=== PATIENT | female | born 1955 | race Caucasian/White ===

== ENCOUNTER → 2017-01-17 | Outpatient (CLI) | payer BC ==
--- NOTE | 2017-01-18 09:55 | MM ---
Reason for exam: screening (asymptomatic). Last mammogram was performed 1 year ago. History: Patient is postmenopausal and is nulliparous. Family history of breast cancer in maternal aunt at age 50. Took estrogen for 10 years beginning at age 26. Took progesterone for 12 years beginning at age 36. Physical Findings: A clinical breast exam by your physician is recommended on an annual basis and results should be correlated with mammographic findings. MG Screening Mammo w CAD Bilateral CC and MLO view(s) were taken. Prior study comparison: January 20, 2016, bilateral MG screening mammo w CAD. January 23, 2015, bilateral MG screening mammo w CAD. There are scattered fibroglandular densities. No significant changes when compared with prior studies. ASSESSMENT: Benign, BI-RAD 2 RECOMMENDATION: Routine screening mammogram of both breasts in 1 year.
== END | disposition home or self-care (01) ==
LOC: RADMAMWWP 10:56
PROVIDERS: ATTEND Family Medicine
DX: Z12.31 Encounter for screening mammogram for malignant neoplasm of breast (principal)

== ENCOUNTER → 2018-01-26 | Outpatient (CLI) | payer BC ==
--- NOTE | 2018-01-29 08:24 | MM ---
Reason for exam: screening (asymptomatic). Last mammogram was performed 1 year ago. History: Patient is postmenopausal and is nulliparous. Family history of breast cancer in maternal aunt at age 50. Took estrogen for 10 years beginning at age 26. Took progesterone for 12 years beginning at age 36. Physical Findings: A clinical breast exam by your physician is recommended on an annual basis and results should be correlated with mammographic findings. MG Screening Mammo w CAD Bilateral CC and MLO view(s) were taken. Prior study comparison: January 17, 2017, bilateral MG screening mammo w CAD. January 20, 2016, bilateral MG screening mammo w CAD. There is no discrete abnormality. ASSESSMENT: Negative, BI-RAD 1 RECOMMENDATION: Routine screening mammogram of both breasts in 1 year.
== END | disposition home or self-care (01) ==
LOC: RADMAMWWP 11:03
PROVIDERS: ATTEND Family Medicine
DX: Z12.31 Encounter for screening mammogram for malignant neoplasm of breast (principal)
CPT/HCPCS: 77067

== ENCOUNTER → 2019-01-28 | Outpatient (CLI) | payer MEDICARE, BC ==
--- NOTE | 2019-01-30 09:14 | MM ---
Reason for exam: screening (asymptomatic). Last mammogram was performed 1 year ago. History: Patient is postmenopausal and is nulliparous. Family history of breast cancer in maternal aunt at age 50. Took estrogen for 10 years beginning at age 26. Took progesterone for 12 years beginning at age 36. Physical Findings: A clinical breast exam by your physician is recommended on an annual basis and results should be correlated with mammographic findings. MG 3D Screening Mammo W/Cad Bilateral CC and MLO view(s) were taken. Prior study comparison: January 26, 2018, bilateral MG screening mammo w CAD. January 17, 2017, bilateral MG screening mammo w CAD. There are scattered fibroglandular densities. No significant changes when compared with prior studies. ASSESSMENT: Negative, BI-RAD 1 RECOMMENDATION: Routine screening mammogram of both breasts in 1 year.
== END ==
LOC: RADMAMWWP 10:56
PROVIDERS: ATTEND Family Medicine
DX: Z12.31 Encounter for screening mammogram for malignant neoplasm of breast (principal)
CPT/HCPCS: 77063; 77067

== ENCOUNTER → 2020-01-31 | Outpatient (CLI) | payer MEDICARE ==
--- NOTE | 2020-02-03 08:47 | MM ---
Reason for exam: screening (asymptomatic). Last mammogram was performed 1 year ago. History: Patient is postmenopausal and is nulliparous. Family history of breast cancer in maternal aunt at age 50. Took hormonal contraceptives for 3 years. Took estrogen for 10 years beginning at age 26. Took progesterone for 12 years beginning at age 36. Physical Findings: A clinical breast exam by your physician is recommended on an annual basis and results should be correlated with mammographic findings. MG 3D Screening Mammo W/Cad Bilateral CC and MLO view(s) were taken. Prior study comparison: January 28, 2019, bilateral MG 3d screening mammo w/cad. January 26, 2018, bilateral MG screening mammo w CAD. The breast tissue is heterogeneously dense. This may lower the sensitivity of mammography. There is an oval focal asymmetry on the left seen at middle depth centrally on CC and MLO. There is a round 6mm mass of the right upper outer quadrnant at posterior depth 10-11cm from nipple. ASSESSMENT: Incomplete: need additional imaging evaluation, BI-RAD 0 RECOMMENDATION: Special view mammogram of both breasts. If lesion persists on supplemental views, image directed ultrasound is recommended. [facility] will attempt to contact patient to return for supplemental views and ultrasound if indicated.
== END | disposition home or self-care (01) ==
LOC: RADMAMWWP 10:59
PROVIDERS: ATTEND Family Medicine
DX: Z12.31 Encounter for screening mammogram for malignant neoplasm of breast (principal)
CPT/HCPCS: 77063; 77067

== ENCOUNTER → 2020-02-14 | Outpatient (CLI) | payer MEDICARE ==
--- NOTE | 2020-02-14 11:02 | MM ---
Reason for exam: additional evaluation requested from abnormal screening. Last mammogram was performed less than 1 month ago. History: Patient is postmenopausal and is nulliparous. Family history of breast cancer in maternal aunt at age 50. Took hormonal contraceptives for 3 years. Took estrogen for 10 years beginning at age 26. Took progesterone for 12 years beginning at age 36. Physical Findings: Nurse did not find any significant physical abnormalities on exam. MG 3D Work Up W/Cad [facility] Bilateral spot compression CC, spot compression MLO, and LM view(s) were taken. Prior study comparison: January 31, 2020, bilateral MG 3d screening mammo w/cad. January 28, 2019, bilateral MG 3d screening mammo w/cad. The breast tissue is heterogeneously dense. This may lower the sensitivity of mammography. Benign appearing bilateral calcifications. No suspicious abnormality. No significant new findings when compared with previous films. These results were verbally communicated with the patient and result sheet given to the patient on 02/14/20. ASSESSMENT: Benign, BI-RAD 2 RECOMMENDATION: Return to routine screening mammogram schedule for both breasts.
== END | disposition home or self-care (01) ==
LOC: RADMAMWWP 09:47
PROVIDERS: ATTEND Family Medicine
DX: R92.8 Other abnormal and inconclusive findings on diagnostic imaging of breast (principal)
CPT/HCPCS: 77066; G0279; 77062

== ENCOUNTER → 2021-02-24 | Outpatient (CLI) | payer MEDICARE ==
--- NOTE | 2021-02-26 11:01 | MM ---
Reason for exam: screening (asymptomatic). Last mammogram was performed 1 year ago. History: Patient is postmenopausal and is nulliparous. Family history of breast cancer in maternal aunt at age 50. Took hormonal contraceptives for 3 years. Took estrogen for 10 years beginning at age 26. Took progesterone for 12 years beginning at age 36. Physical Findings: A clinical breast exam by your physician is recommended on an annual basis and results should be correlated with mammographic findings. MG 3D Screening Mammo W/Cad Bilateral CC and MLO view(s) were taken. Prior study comparison: February 14, 2020, bilateral MG 3d work up w/cad [facility]. January 31, 2020, bilateral MG 3d screening mammo w/cad. The breast tissue is heterogeneously dense. This may lower the sensitivity of mammography. No significant changes when compared with prior studies. ASSESSMENT: Benign, BI-RAD 2 RECOMMENDATION: Routine screening mammogram of both breasts in 1 year.
== END | disposition home or self-care (01) ==
LOC: RADMAMWWP 14:38
PROVIDERS: ATTEND Family Medicine
DX: Z12.31 Encounter for screening mammogram for malignant neoplasm of breast (principal); Z78.0 Asymptomatic menopausal state; Z80.3 Family history of malignant neoplasm of breast
CPT/HCPCS: 77063; 77067

== ENCOUNTER → 2023-03-10 | Outpatient (CLI) | payer MEDICARE ==
--- NOTE | 2023-03-10 12:52 | MM ---
Reason for Exam: Screening (asymptomatic). Last screening mammogram was performed 12 month(s) ago. Patient History: Menarche at age 11. Patient has no children. Left ovary removed at age 26. Right ovary removed at age 26. Hysterectomy at age 26. Postmenopausal. Estrogen for 10 years from age 26 until age 36. Progesterone for 12 years from age 36 until age 48. Patient used Hormonal Contraceptives for 3 years. Maternal aunt had breast cancer, age 50. Risk Values: Jasmin 5 year model risk: 1.9%. NCI Lifetime model risk: 5.9%. Prior Study Comparison: 02/14/2020 Bilateral Diagnostic Mammogram, [facility]. 02/24/2021 Bilateral Screening Mammogram, [facility]. 03/03/2022 Bilateral Screening Mammogram, [facility]. Tissue Density: The breast tissue is heterogeneously dense. This may lower the sensitivity of mammography. Findings: Analyzed By CAD. There is no suspicious group of microcalcifications or new suspicious mass in either breast. Benign-appearing calcifications within both breasts. Overall Assessment: Benign, BI-RAD 2 Management: Screening Mammogram of both breasts in 1 year. A clinical breast exam by your physician is recommended on an annual basis and results should be correlated with mammographic findings. Electronically signed and approved by: Damon Rizzo D.O.
== END | disposition home or self-care (01) ==
LOC: RADMAMWWP 10:03
PROVIDERS: ATTEND Family Medicine
DX: Z12.31 Encounter for screening mammogram for malignant neoplasm of breast (principal); Z78.0 Asymptomatic menopausal state; Z80.3 Family history of malignant neoplasm of breast
CPT/HCPCS: 77063; 77067

== ENCOUNTER → 2023-09-15 | Outpatient (CLI) | payer MEDICARE ==
[2023-09-15 16:34] LABS: HCT 35.6 % (37.2-46.3); HGB 11.9 d/dL (12.0-15.0); MCH 32.2 pg (27.0-32.0); MCHC 33.4 d/dL (32.0-37.0); MCV 96.5 FL (80.0-97.0); NRBC Per 100 WBC 0 X 10*3/uL (0.00-0.01); Platelet Count 141 X 10*3/uL (140-440); RBC 3.69 X 10*6/uL (4.10-5.20); RDW 13.2 % (11.5-14.5); WBC 5.16 X 10*3/uL (4.50-10.00)
[2023-09-15 17:08] LABS: ALT 28 U/L (8-44); AST 18 U/L (13-35); Albumin 4.2 d/dL (3.8-4.9); Albumin/Globulin Ratio 1.91 Ratio (1.60-3.17); Alkaline Phosphatase 86 U/L (41-126); Blood Urea Nitrogen 16.8 mg/dL (9.0-27.0); Calcium 9.7 mg/dL (8.7-10.3); Carbon Dioxide 27.2 mmol/L (21.6-31.8); Chloride 106 mmol/L (96-109); Globulin 2.2 d/dL (1.6-3.3); Glucose 92 mg/dL (70-110); Potassium 4.1 mmol/L (3.5-5.5); Sodium 143 mmol/L (135-145); T4, Free (Free Thyroxine) 0.95 ng/dL (0.80-1.80); Total Bilirubin 0.3 mg/dL (0.3-1.2); Total Protein 6.4 d/dL (6.2-8.2)
[2023-09-16 01:11] LABS: Vitamin B12 >3600.0 pg/mL (200.0-944.0)
[2023-09-16 01:14] LABS: Estradiol <20.0 pg/mL; Testosterone <10.00 ng/dL (7.00-45.62)
== END | disposition home or self-care (01) ==
LOC: LABWHC1 11:11
PROVIDERS: ATTEND Internal Medicine Endocrinology, Diabetes & Metabolism
DX: E89.40 Asymptomatic postprocedural ovarian failure (principal); R53.83 Other fatigue
CPT/HCPCS: 36415; 80053; 82024; 82533; 82607; 82670; 83001; 84146; 84403; 84439; 84443; 84481; 85027

== ENCOUNTER → 2023-10-26 | Outpatient (CLI) | payer MEDICARE ==
[2023-10-26 16:47] LABS: Thyroid Peroxidase Antibodies 9.7 U/mL (0.0-33.0)
[2023-10-26 21:34] LABS: ACTH 20.2 pg/mL (0.00-45.99)
== END | disposition home or self-care (01) ==
LOC: LABWHC1 12:25
PROVIDERS: ATTEND Internal Medicine Endocrinology, Diabetes & Metabolism
DX: E89.40 Asymptomatic postprocedural ovarian failure (principal); R53.83 Other fatigue
CPT/HCPCS: 36415; 82024; 82607; 86376

== ENCOUNTER → 2024-03-15 | Outpatient (CLI) | payer MEDICARE ==
--- NOTE | 2024-03-18 19:27 | MM ---
Reason for Exam: Screening (asymptomatic). Last screening mammogram was performed 12 month(s) ago. Patient History: Menarche at age 11. Patient has no children. Left ovary removed at age 26. Right ovary removed at age 26. Hysterectomy at age 26. Postmenopausal. Estrogen for 10 years from age 26 until age 36. Progesterone for 12 years from age 36 until age 48. Patient used Hormonal Contraceptives for 3 years. Maternal aunt had breast cancer, age 50. Risk Values: Jasmin 5 year model risk: 1.9%. NCI Lifetime model risk: 5.6%. Prior Study Comparison: 02/24/2021 Bilateral Screening Mammogram, [facility]. 03/03/2022 Bilateral Screening Mammogram, [facility]. 03/10/2023 Bilateral MG 3D screening mammo w/cad, [facility]. Tissue Density: There are scattered areas of fibroglandular density. Findings: Analyzed By CAD. Central outer asymmetric density on the right CC view middle to posterior depth may represent superimposition shadow but further evaluation is recommended. Otherwise, no significant change. Overall Assessment: Incomplete: need additional imaging evaluation, BI-RAD 0 Management: Special View Mammogram of the right breast. To include spot 3-D CC, 3-D CC rolled, and 3-D ML views. [facility] will attempt to contact patient to return for supplemental views and ultrasound if indicated. Electronically signed and approved by: Oswaldo Gabriel M.D. Radiologist
== END | disposition home or self-care (01) ==
LOC: RADMAMWWP 11:23
PROVIDERS: ATTEND Family Medicine
DX: Z12.31 Encounter for screening mammogram for malignant neoplasm of breast (principal); Z78.0 Asymptomatic menopausal state; Z80.3 Family history of malignant neoplasm of breast
CPT/HCPCS: 77063; 77067

== ENCOUNTER → 2024-03-25 | Outpatient (CLI) | payer MEDICARE ==
--- NOTE | 2024-03-25 13:48 | MM ---
Reason for Exam: Additional evaluation requested from abnormal screening. Last screening mammogram was performed less than 1 month ago. Patient History: Menarche at age 11. Patient has no children. Left ovary removed at age 26. Right ovary removed at age 26. Hysterectomy at age 26. Postmenopausal. Estrogen, starting at age 26 for 20 years. Progesterone, starting at age 36 for 20 years. Patient used Hormonal Contraceptives for 3 years. Maternal aunt had breast cancer, age 50. Risk Values: Jasmin 5 year model risk: 1.9%. NCI Lifetime model risk: 5.6%. Prior Study Comparison: 03/08/1993 Screening Mammogram, Unknown. 03/20/1995 Screening Mammogram, Unknown. 07/17/1995 Screening Mammogram, Unknown. 01/20/2016 Bilateral Screening Mammogram, [facility]. 01/17/2017 Bilateral Screening Mammogram, [facility]. 01/26/2018 Bilateral Screening Mammogram, [facility]. 01/28/2019 Bilateral Screening Mammogram, [facility]. 01/31/2020 Bilateral Screening Mammogram, [facility]. 02/14/2020 Bilateral Diagnostic Mammogram, [facility]. 02/24/2021 Bilateral Screening Mammogram, [facility]. 03/03/2022 Bilateral Screening Mammogram, [facility]. 03/10/2023 Bilateral MG 3D screening mammo w/cad, [facility]. 03/15/2024 Bilateral MG 3D screening mammo w/cad, [facility]. Tissue Density: Right: The breasts are heterogeneously dense, which may obscure small masses. Findings: Analyzed By CAD. Area of concern/asymmetry compresses out on spot compression imaging. No suspicious masses, calcifications or distortions. Overall Assessment: Benign, BI-RAD 2 Management: Screening Mammogram of both breasts in 1 year. Results were given to the patient verbally at the time of exam. Patient should continue monthly self-breast exams. A clinical breast exam by your physician is recommended on an annual basis. This exam should not preclude additional follow-up of suspicious palpable abnormalities. Note on Jasmin scores and lifetime risk: 1. A Jasmin score greater than 3% is considered moderate risk. If this is the case, consider specialist referral to assess eligibility for a risk reducing agent. 2. If overall lifetime risk for the development of breast cancer is 20% or higher, the patient may qualify for future screening with alternating mammogram and breast MRI. Electronically signed and approved by: Jesús Hernández DO
== END | disposition home or self-care (01) ==
LOC: RADMAMWWP 13:18
PROVIDERS: ATTEND Family Medicine
DX: R92.331 Mammographic heterogeneous density, right breast (principal); Z80.3 Family history of malignant neoplasm of breast; Z78.0 Asymptomatic menopausal state
CPT/HCPCS: 77065; G0279; 77061

== ENCOUNTER → 2024-06-27 | Outpatient (CLI) | payer MEDICARE ==
--- NOTE | 2024-06-27 12:00 | BD ---
EXAMINATION TYPE: Axial Bone Density DATE OF EXAM: 06/27/2024 CLINICAL HISTORY: 68 years old Female. ICD-10 CODE: N95.1 POST MENOPAUSAL Height: 63.5in Weight: 153lb FRAX RISK QUESTIONS: History of Fracture in Adulthood: no Secondary Osteoporosis: 3. Menopause before 45: yes RISK FACTORS HISTORY OF: MEDICATIONS: Thyroid Medications: Which medication: [place] How [facility] years EXAM MEASUREMENTS: Bone mineral densitometry was performed using the EyeEm System. Bone mineral density as measured about the Lumbar spine is: ----- L1-L4(G/cm2): 0.748 T Score Values are as follows: ----- L1: -3.8 ----- L2: -4.0 ----- L3: -3.6 ----- L4: -3.3 ----- L1-L4: -3.6 Z Score Values are as follows: ----- L1: -2.2 ----- L2: -2.4 ----- L3: -2.1 ----- L4: -1.8 ----- L1-L4: -2.1 First dexa at [facility] Bone mineral density about the R hip (g/cm2): 0.802 Bone mineral density about the L hip (g/cm2): 0.842 T Score values are as follows: -----R Neck: -1.8 -----L Neck: -1.7 -----R Total: -1.6 -----L Total: -1.3 Z Score values are as follows: -----R Neck: -0.2 -----L Neck: -0.1 -----R Total: -0.2 -----L Total: 0.1 First dexa at [facility] FRAX%s: The graph provided illustrates a 11.2% chance for a major osteoporotic fx and a 2% chance for the hips probability for fx in 10 years time. IMPRESSION: Osteoporosis (T Score less than -2.5). There is increased fracture risk and therapy is usually indicated based on age. Re-Screen 1-2 years. NOTE: T-SCORE=SD OF THE YOUNG ADULT MEAN.
== END | disposition home or self-care (01) ==
LOC: RADBDWWP 10:03
PROVIDERS: ATTEND Family Medicine
DX: M81.0 Age-related osteoporosis without current pathological fracture (principal); N95.1 Menopausal and female climacteric states; M85.89 Other specified disorders of bone density and structure, multiple sites
CPT/HCPCS: 77080

== ENCOUNTER → 2024-12-20 | Outpatient (CLI) | payer MEDICARE ==
--- NOTE | 2024-12-20 14:18 | US ---
EXAMINATION TYPE: US venous doppler duplex LE LT DATE OF EXAM: 12/20/2024 2:03 PM COMPARISON: NONE CLINICAL INDICATION: Female, 69 years old with history of I80.202 PHLBTS AND THOMBOPHLB OF UNSP DEEP VESSELS; Pain left leg. , Pain TECHNIQUE: The lower extremity deep venous system is examined utilizing real time linear array sonog mary jo with graded compression, color doppler sonography, and spectral doppler. SIDE PERFORMED: Left FINDINGS: VESSELS IMAGED: Common Femoral Vein Deep Femoral Vein Greater Saphenous Vein * Femoral Vein Popliteal Vein Small Saphenous Vein * Proximal Calf Veins (* superficial vessels) Left Leg: Negative for DVT, Color Doppler imaging shows patency of the vessels. Spectral waveforms a re within normal limits. IMPRESSION: 1. No evidence of deep vein thrombosis of the left lower extremity. [facility], , 12/20/2024 2:15 PM
== END | disposition home or self-care (01) ==
LOC: RADUSWWP 13:35
PROVIDERS: ATTEND Orthopaedic Surgery
DX: I80.202 Phlebitis and thrombophlebitis of unspecified deep vessels of left lower extremity (principal); M25.562 Pain in left knee; M76.892 Other specified enthesopathies of left lower limb, excluding foot; M17.12 Unilateral primary osteoarthritis, left knee

== ENCOUNTER → 2025-03-18 | Outpatient (CLI) | payer MEDICARE ==
--- NOTE | 2025-03-18 10:19 | MM ---
Reason for Exam: Screening (asymptomatic). Last screening mammogram was performed 12 month(s) ago. Patient History: Menarche at age 11. Patient has no children. Left ovary removed at age 26. Right ovary removed at age 26. Hysterectomy at age 26. Postmenopausal. Estrogen for 20 years from age 26 until age 69. Progesterone, starting at age 36 for 20 years. Patient used Hormonal Contraceptives for 3 years. Maternal aunt had breast cancer, age 50. Risk Values: Jasmin 5 year model risk: 1.9%. NCI Lifetime model risk: 5.4%. Prior Study Comparison: 03/10/2023 Bilateral MG 3D screening mammo w/cad, [facility]. 03/15/2024 Bilateral MG 3D screening mammo w/cad, [facility]. 03/25/2024 Right MG 3D work up w/cad RT, [facility]. Tissue Density: The breasts are heterogeneously dense, which may obscure small masses. Findings: Analyzed By CAD. There is no suspicious group of microcalcifications or new suspicious mass in either breast. Overall Assessment: Benign, BI-RAD 2 Management: Screening Mammogram of both breasts in 1 year. . Patient should continue monthly self-breast exams. A clinical breast exam by your physician is recommended on an annual basis. This exam should not preclude additional follow-up of suspicious palpable abnormalities. Note on Jasmin scores and lifetime risk: 1. A Jasmin score greater than 3% is considered moderate risk. If this is the case, consider specialist referral to assess eligibility for a risk reducing agent. 2. If overall lifetime risk for the development of breast cancer is 20% or higher, the patient may qualify for future screening with alternating mammogram and breast MRI. [facility], , 03/18/2025 10:16 AM. Electronically signed and approved by: Reece Guzmán M.D. Radiologis
== END | disposition home or self-care (01) ==
LOC: RADMAMWWP 09:39
PROVIDERS: ATTEND Family Medicine
DX: Z12.31 Encounter for screening mammogram for malignant neoplasm of breast (principal); R92.333 Mammographic heterogeneous density, bilateral breasts; Z78.0 Asymptomatic menopausal state; Z80.3 Family history of malignant neoplasm of breast; Z92.0 Personal history of contraception
CPT/HCPCS: 77063; 77067

== ENCOUNTER → 2025-05-26 | Outpatient (CLI) | payer MEDICARE | END | disposition home or self-care (01) | LOC: LABPAT 13:01 | PROVIDERS: ATTEND Orthopaedic Surgery | DX: Z01.812 Encounter for preprocedural laboratory examination (principal); M17.12 Unilateral primary osteoarthritis, left knee; Z22.322 Carrier or suspected carrier of Methicillin resistant Staphylococcus aureus | CPT/HCPCS: 87070 ==

== ENCOUNTER → 2025-06-12 | Outpatient (CLI) | payer MEDICARE ==
[2025-06-12 11:22] LABS: INR 1.0 (<1.2); Prothrombin Time 10.9 sec (10.0-12.5)
[2025-06-12 15:17] LABS: Anion Gap 9.40 mmol/L (4.00-12.00); BUN/Creat Ratio 21.00 Ratio (12.00-20.00); Blood Urea Nitrogen 14.7 mg/dL (9.0-27.0); Calcium 9.5 mg/dL (8.7-10.3); Carbon Dioxide 27.6 mmol/L (21.6-31.8); Chloride 105 mmol/L (96-109); Glucose 94 mg/dL (70-110); Potassium 4.7 mmol/L (3.5-5.5); Sodium 142 mmol/L (135-145)
[2025-06-12 15:27] LABS: HCT 42.5 % (37.2-46.3); HGB 14.1 g/dL (12.0-15.0); MCH 31.3 pg (27.0-32.0); MCHC 33.2 g/dL (32.0-37.0); MCV 94.4 FL (80.0-97.0); NRBC Per 100 WBC 0 X 10*3/uL (0.00-0.01); Platelet Count 172 X 10*3/uL (140-440); RBC 4.50 X 10*6/uL (4.10-5.20); RDW 12.7 % (11.5-14.5); WBC 4.61 X 10*3/uL (4.50-10.00)
[2025-06-12 15:28] LABS: Basophils # (A) 0.03 X 10*3/uL (0.00-0.10); Basophils % (A) 0.7 %; Eosinophils # (A) 0.07 X 10*3/uL (0.04-0.35); Eosinophils % (A) 1.5 %; Immature Grans, Automated 0.20 %; Lymphocytes # (A) 1.68 X 10*3/uL (0.90-5.00); Lymphocytes % (A) 36.4 %; Monocytes # (A) 0.30 X 10*3/uL (0.20-1.00); Monocytes % (A) 6.5 %; Neutrophils # (A) 2.52 X 10*3/uL (1.80-7.70); Neutrophils % (A) 54.7 %; RBC Morphology Normal (Normal)
--- NOTE | 2025-06-15 14:03 | HP ---
HISTORY AND PHYSICAL ANTICIPATED DATE OF SURGERY: 06/16/2025. HISTORY OF PRESENT ILLNESS: Vivien Ramon is a 69-year-old patient seen with symptomatic left knee osteoarthritis. We discussed options regarding treatment. She elected to proceed with left total knee arthroplasty. Consent regarding procedure obtained. Medical clearance was provided by Dr. Fuad Shaikh. PAST MEDICAL HISTORY: Hypertension, hyperlipidemia, hypothyroidism. PAST SURGICAL HISTORY: Cataract surgery, foot surgery, hysterectomy. DAILY MEDICATIONS: 1. Atorvastatin. 2. Synthroid. 3. Various vitamins. ALLERGIES: Penicillin. SOCIAL HISTORY: She denies tobacco use. PHYSICAL EVALUATION OF THE LEFT KNEE: Range of motion is degrees. Mild effusion. Tenderness, medial joint line. Crepitus, medial patellofemoral compartments with range of motion. Pain with patellofemoral compression. Ligaments stable. Hip rotation without pain. Distal neurovascular exam is intact. IMAGING STUDIES: Left knee radiographs revealed severe osteoarthritic changes. IMPRESSION: 1. Left knee osteoarthritis. 2. Hypothyroidism. 3. Hypertension. PLAN: Left total knee arthroplasty. MMODL / IJN: [id number] /
== END | disposition home or self-care (01) ==
LOC: LABWHC1 10:11
PROVIDERS: ATTEND Orthopaedic Surgery
DX: Z01.812 Encounter for preprocedural laboratory examination (principal); M17.12 Unilateral primary osteoarthritis, left knee; Z79.899 Other long term (current) drug therapy
CPT/HCPCS: 36415; 80048; 85025; 85610

== ENCOUNTER 2025-06-16 09:15 | Day surgery (SDC) | payer MEDICARE ==
[~2025-06-16 09:15] MED LIST: HYDROmorphone 0.5 MG/0.5 ML SYRINGE IVP PRN; TRANEXAMIC 1,000 MG/100ML-NACL 1,000 MG in SALINE 1 100ML.BAG IVPB PRN
[2025-06-16] MEDS: ACETAMINOPHEN TAB 500 MG TAB PO PRN (09:43)
[2025-06-16] MEDS: MELOXICAM 7.5 MG TAB PO PRN (09:44)
[2025-06-16] MEDS: DEXAMETHASONE SOD PHOSPHATE 4 MG/ML 1 ML VIAL IV ONE (10:01)
[2025-06-16] MEDS: LACTATED RINGERS 1,000 ML IV SCH ×2 (10:01→17:12)
[2025-06-16] MEDS: ONDANSETRON 4 MG/2 ML VIAL IVP ONE (10:02)
[2025-06-16] MEDS: IV FLUID CONTINUATION 1,000 ML IV ONE (10:03)
[2025-06-16] MEDS: MIDAZOLAM 2 MG/2 ML VIAL IV ONE (10:17)
[2025-06-16] MEDS ORDERED: ROPIVACAINE 5 MG/ML 30 ML VIAL ONE (10:35)
[2025-06-16] MEDS ORDERED: TRANEXAMIC 1,000 MG/100ML-NACL PREMIX BAG ONE (10:35)
[2025-06-16] MEDS ORDERED: DEXAMETHASONE SOD PHOSPHATE 4 MG/ML 1 ML VIAL ONE (10:35)
[2025-06-16] MEDS ORDERED: MIDAZOLAM 2 MG/2 ML VIAL ONE (10:35)
[2025-06-16] MEDS ORDERED: PROPOFOL 10 MG/ML 20 ML VIAL IV ONE (10:35)
[2025-06-16] MEDS ORDERED: fentaNYL (PF) 50 MCG/ML 2 ML AMP ONE (10:35)
[2025-06-16] MEDS: LACTATED RINGERS 1,000 ML IV ONE (12:06)
[2025-06-16] MEDS ORDERED: ONDANSETRON 4 MG/2 ML VIAL IVP PRN (12:32)
[2025-06-16] MEDS ORDERED: HYDROmorphone 0.5 MG/0.5 ML SYRINGE IVP PRN ×3 (12:32)
[2025-06-16] MEDS ORDERED: NALOXONE 0.4 MG/ML 1 ML VIAL IV PRN (12:32)
[2025-06-16] MEDS ORDERED: HYDROcodone/APAP 7.5-325MG 1 EACH TAB PO PRN (12:32)
--- NOTE | 2025-06-16 12:32 | P.OP ---
Date of Procedure: 06/16/25 Preoperative Diagnosis: Left knee osteoarthritis Postoperative Diagnosis: Left knee osteoarthritis Procedure(s) Performed: Left total knee arthroplasty Implants: 1. DePuy attune size 5 narrow left cruciate retaining cemented femur 2. DePuy attune size 4 fixed-bearing cemented tibial baseplate 3. DePuy attune size 5 fixed-bearing cruciate retaining 7 mm polyethylene tibial insert DePuy 4. DePuy attune 32 mm all polyethylene cemented patella Anesthesia: regional (Adductor canal catheter, iPAQ block), spinal Surgeon: Vick Sosa Clam Bed Worker #1: Mason Harris Estimated Blood Loss (ml): 40 Pathology: none sent Condition: stable Disposition: PACU Indications for Procedure: 69-year-old patient seen with symptomatic left knee osteoarthritis. After having treatment options discussed, she elected to proceed with left total knee arthroplasty. Consent regarding procedure obtained. Operative Findings: See description of procedure Description of Procedure: Patient was taken to the operative suite after having an adductor canal catheter placed by the department of anesthesia. Patient underwent a spinal anesthetic by the department of anesthesia. Patient was given preoperative IV intake antibiotics and TXA. A well-padded tourniquet was placed about the left lower extremity. The lower extremity was then prepped and draped in the normal sterile orthopedic fashion. The extremity was elevated, a tourniquet was insufflated to 300. A standard anterior incision was made sharply through skin. Dissection was taken down through the subcutaneous soft tissues down to the extensor mechanism. A medial arthrotomy was performed, patella was everted and knee was flexed. There was advanced osteoarthritis noted. I introduced my distal intramedullary femoral drill. I then introduced the distal femoral cutting jig. Mason LINARES secured the cutting jig with 2 pins. I held retractors in position while Mason LINARES performed the distal femoral resection through the guide area we now removed her distal femoral cutting guide. We now placed our 4-in-1 femoral cutting block and positioned and it was secured with 2 pins by Mason LINARES while I held the block in position. The distal femoral finishing was now completed. A proximal tibial cutting guide was positioned. I held the guide in the appropriate position with both hands while Mason LINARES inserted stabilizing pins into the guide. Proximal tibial cut was made. We now placed a trial femoral component into position, along with an appropriate size tibial tray and insert. We now took the knee through range of motion and had full extension good flexion and good overall soft tissue balance noted. The patella was everted and stabilized with 2 towel clips held by Mason LINARES while I performed a flush with patellar quad tendon utilizing a fresh sawblade. We templated the patella, appropriate drill holes were made. An appropriate trial patella was positioned, knee was taken through full range of motion with the patella tracking very nicely. The trial patella was removed. Drill holes were made through the femoral component. All trial components were removed after marking off the appropriate rotation of the tibia. Retractors were now positioned along the proximal tibia. An appropriate keel punch was made with the appropriate size tibial guide by myself on Jose LINARES assisted by holding retractors. At this point appropriate size implants were chosen and opened. The joint was irrigated copiously with pulse lavage mechanical irrigation. The wound was irrigated with pulse lavage mechanical irrigation. We mixed antibiotic methylmethacrylate. We placed the knee into flexion. We placed multiple retractors assisted by Mason LINARES to expose the proximal tib ia. Once the methyl methacrylate was ready, the tibial component was cemented into place removing any excess methylmethacrylate form by both myself and Mason LINARES. The femoral component was cemented into place removing the removing any excess methylmethacrylate performed by both myself and Jose LINARES. We then inserted the appropriate size polyethylene tibial insert. We made sure that it was locked into position. We took the knee into full extension, and then back in a flexion making sure we had removed any excess methylmethacrylate. The patellar component was then cemented down and secured with clamp. Excess methylmethacrylate removed. We kept the knee in full extension, patellar clamp in position until methylmethacrylate had hardened. Once it had hardened the patellar clamp was removed. The knee was taken through full range of motion. The patella tracked nicely. There was good soft tissue balancing. The tourniquet was now released. Additional hemostasis was achieved via electrocautery. A second gram of TXA was given. The wound again was irrigated with pulse lavage mechanical irrigation. The extensor mechanism was repaired with Vicryl. We checked the repair with range of motion and it was stable. The subcutaneous soft tissues were repaired with Vicryl in layers. The skin was approximated with pernio/Dermabond. Sterile dressings were applied followed by loose web roll and Patrh bandage. The patient was transferred to a bed, and taken to recovery in stable and satisfactory condition. Mason LINARES assisted with this complex procedure.
[2025-06-16] MEDS: ROPIVACAINE 1,100 MG, SODIUM CHLORIDE 0.9% 500 ML 330 ML, EMPTY PAIN BALL 1 EACH MISCELLANE PRN (13:00)
--- NOTE | 2025-06-16 13:46 | XR ---
EXAMINATION TYPE: XR knee limited LT DATE OF EXAM: 06/16/2025 1:23 PM COMPARISON: None. CLINICAL INDICATION: Female, 69 years old with history of Evaluation for Postop abnormality and align ment, pain TECHNIQUE: 2 view(s) obtained. FINDINGS: There is placement of left femoral and tibial components. No acute fractures are evident. Soft tissue postsurgical changes are evident. IMPRESSION: 1. No acute fracture post left knee replacement [facility], Workstation: [facility], 06/16/2025 1:44 PM
--- NOTE | 2025-06-16 15:27 | P.ANPRN ---
Procedure Note - Anesthesia - Nerve Block Performed Left Adductor Canal Single Time Out Performed: Yes Date of Procedure: 06/16/25 Procedure Start Time: : Procedure Stop Time: Location of Patient: PreOp Indication: Acute Post-Operative Pain, Requested by Surgeon Sedation Type: Sedate with meaningful contact maintained Preparation: Sterile Prep, Sterile Dressing Position: Supine Catheter: Indwelling Needle Types: Pajunk Needle Gauge: 21 Ultrasound used to visualize needle placement: Yes Ultrasound used to observe medication spread: Yes Blood Aspirated: No Pain Paresthesia on Injection Noted: No Resistance on Injection: Normal Image Stored and Saved: Yes Events: Uneventful and Well Tolerated (Ropivacaine 0.5% 20 cc plus dexamethasone 4 mg)
--- NOTE | 2025-06-16 15:27 | P.ANPRN ---
Procedure Note - Anesthesia - Nerve Block Performed Left iPack Single Time Out Performed: Yes Date of Procedure: 06/16/25 Procedure Start Time: 10: Procedure Stop Time: :30 Location of Patient: PreOp Indication: Acute Post-Operative Pain, Requested by Surgeon Sedation Type: Sedate with meaningful contact maintained Preparation: Sterile Prep Position: Supine Needle Types: Pajunk Needle Gauge: 21 Ultrasound used to visualize needle placement: Yes Ultrasound used to observe medication spread: Yes Blood Aspirated: No Pain Paresthesia on Injection Noted: No Resistance on Injection: Normal Image Stored and Saved: Yes Events: Uneventful and Well Tolerated (Ropivacaine 0.5% 20 cc plus dexamethasone 4 mg)
[2025-06-16] MEDS: SENNOSIDES-DOCUSATE SODIUM 1 EACH TAB PO SCH (20:41)
[2025-06-16] MEDS: MELATONIN 5 MG TABLET PO SCH (20:41)
[2025-06-16] MEDS: ATORVASTATIN 10 MG TAB PO SCH (20:41)
[2025-06-16] MEDS: ASPIRIN 81 MG PO SCH (20:41)
[2025-06-16] MEDS ORDERED: MAG BARK PO SCH (21:00)
[2025-06-16] MEDS ORDERED: SOY ISOFLA PO SCH (21:00)
[2025-06-16] MEDS ORDERED: [UNRECOGNIZED DRUG - OTHER] PO SCH (21:00)
[2025-06-16] MEDS ORDERED: BLK COHOSH PO SCH (21:00)
[2025-06-17 00:47] VITALS: RESP 16
[2025-06-17] MEDS: THYROID, PORK 30 MG TAB PO SCH (02:47)
[2025-06-17] MEDS: HYDROcodone/APAP 5-325MG 1 EACH TAB PO PRN (05:22)
[2025-06-17 07:48] VITALS: BP 104/67; PULSE 79; TEMP 97.9
[2025-06-17 08:07] LABS: Basophils # (A) 0.01 X 10*3/uL (0.00-0.10); Basophils % (A) 0.1 %; Eosinophils # (A) 0 X 10*3/uL (0.04-0.35); Eosinophils % (A) 0 %; HCT 37.2 % (37.2-46.3); HGB 12.5 g/dL (12.0-15.0); Immature Grans, Automated 0.50 %; Lymphocytes # (A) 0.99 X 10*3/uL (0.90-5.00); Lymphocytes % (A) 8.1 %; MCH 31.9 pg (27.0-32.0); MCHC 33.6 g/dL (32.0-37.0); MCV 94.9 FL (80.0-97.0); Monocytes # (A) 0.58 X 10*3/uL (0.20-1.00); Monocytes % (A) 4.8 %; NRBC Per 100 WBC 0 X 10*3/uL (0.00-0.01); Neutrophils # (A) 10.57 X 10*3/uL (1.80-7.70); Neutrophils % (A) 86.5 %; Platelet Count 98 X 10*3/uL (140-440); RBC 3.92 X 10*6/uL (4.10-5.20); RDW 12.8 % (11.5-14.5); WBC 12.21 X 10*3/uL (4.50-10.00)
[2025-06-17] MEDS: CHOLECALCIFEROL 25 MCG (1000 IU) TABLET PO SCH (08:47)
[2025-06-17] MEDS ORDERED: CALCIUM MAGNESIUM PO SCH (09:00)
--- NOTE | 2025-06-17 09:59 | P.PN ---
Progress Note - Text Progress Note Date: 06/17/25 Postoperative day # 1 status post total knee arthroplasty, and adductor canal catheter placed for postoperative analgesia, currently at ropivacaine 0.2% 8 mL per hour and continuous infusion, visual analogue scale is 3-4/10, patient using oral pain medication for breakthrough pain. Assessment and plan= Acute postoperative pain, adductor canal catheter for pain control, pain is well controlled we'll continue the same management.
--- NOTE | 2025-06-17 10:44 | P.DS ---
Providers Date of admission: 06/16/2025 Expected date of discharge: 06/17/25 Attending physician: Vick Sosa Consults: 06/16/25 12:32 Consult Physician Routine Consulting Provider: Fuad Shaikh Reason/Comments: Medical management Do you want consulting provider notified?: Yes Primary care physician: Fuad Shaikh Hospital Course: Date of admission: 06/16/2025 Date of discharge: 06/17/2025 Admission diagnosis: Left knee osteoarthritis Discharge diagnosis: Same Attending physician: Dr. Sosa Surgical procedures: Left total knee arthroplasty Brief history: Patient is a 69-year-old female with a history of progressive primary left knee osteoarthritis. At this point patient has failed conservative treatment measures and has opted to proceed with a elective left total knee arthroplasty. Hospital course: Details of patient's surgery can be found in operative report. Patient tolerated the procedure well and was subsequently transported to orthopedic floor. Patient's orthopeidc and medical care was provided daily. Patient had daily laboratory tests performed for evaluation of overall blood counts. Patient had daily physical therapy to include strengthening range of motion as well as education with walker ambulation. Patient was treated with aspirin for their postoperative DVT prophylaxis during their inpatient stay. Patient was noted to have a relatively uneventful postoperative course. Patient reported satisfactory pain control with oral pain medications by postoperative day 1. Patient showed satisfactory progress with physical therapy. Patient moved steadily through the program and had no difficulty meeting the goals by postoperative day 1. Given patient's otherwise satisfactory course and having met physical therapy goals, plan is to discharge patient home with health services on postoperative day 1. Discharge condition/disposition: Patient will be discharged home with health services in stable condition. Discharge medications: Instructions are given on resumption of patient's normal daily medications per primary care recommendation, in addition patient will be prescribed Winfield; senna; aspirin 81 mg twice daily. Discharge instructions: 1. Wound care and infection precautions, keep incision dry and covered while showering, no lotions, creams, moisturizers. No soaking, tubs, pools, hottubs. Do not scrub over the incision. 2. Weight-bear as tolerated with walker / cane until follow-up. 3. Ice and elevate when necessary. Do not exceed 20 minutes per hour with ice pack. 4. Utilize compression sleeve until seen at first follow up appointment. 5. Visiting nursing care. 6. Home physical therapy including home CPM. 7. Pain meds and anticoagulants per prescription. 8. Pain medication has potential to cause constipation. Increase oral fluid and fiber intake. Contact primary care provider if you have not had a bowel movement within 48 hours after discharge 9. No anti-inflammatory medication until discussed at first post operative visit, this including Motrin, Aleve, Mobic, Diclofenac. 10. Follow up in office at 2 weeks postop with Jose Morales PA-C / Mason Harris PA-C 11. Follow up with your primary care doctor 7-10 days after discharge. 12. Contact [facility] with any questions, . Assessment: Left knee osteoarthritis Procedures: Left total knee arthroplasty Patient Condition at Discharge: Good Plan - Discharge Summary Discharge Rx Participant: Yes New Discharge Prescriptions: New Sennosides/Docusate Sodium [Senna Plus 8.6-50 mg Softgel] 1 each PO DAILY #20 capsule Aspirin [Adult Low Dose Aspirin EC] 81 mg PO BID #60 tab HYDROcodone/APAP 5-325MG [Winfield 5-325] 1 - 2 tab PO Q6HR PRN #36 tab PRN Reason: Pain No Action Thyroid,Pork [Clerk Guide Thyroid] 60 mg PO HS Calcium,Magnesium 1 tab PO DAILY Cholecalciferol [Vitamin D3 (25 Mcg = 1000 Iu)] 25 mcg PO DAILY Melatonin 5 mg PO HS Atorvastatin [Lipitor] 10 mg PO HS Acetaminophen Tab [Tylenol] 325 mg PO Q4H PRN PRN Reason: Pain Soy Isofla/Blk Cohosh/Mag Bark [Estroven 155 mg Capsule] 155 mg PO HS Discharge Medication List Acetaminophen Tab [Tylenol] 325 mg PO Q4H PRN 06/11/25 [History] Atorvastatin [Lipitor] 10 mg PO HS 06/11/25 [History] Calcium,Magnesium 1 tab PO DAILY 06/11/25 [History] Cholecalciferol [Vitamin D3 (25 Mcg = 1000 Iu)] 25 mcg PO DAILY 06/11/25 [History] Melatonin 5 mg PO HS 06/11/25 [History] Soy Isofla/Blk Cohosh/Mag Bark [Estroven 155 mg Capsule] 155 mg PO HS 06/11/25 [History] Thyroid,Pork [Clerk Guide Thyroid] 60 mg PO HS 06/11/25 [History] Aspirin [Adult Low Dose Aspirin EC] 81 mg PO BID #60 tab 07/22/25 [Rx] HYDROcodone/APAP 5-325MG [Winfield 5-325] 1 - 2 tab PO Q6HR PRN #36 tab 06/17/25 [Rx] Sennosides/Docusate Sodium [Senna Plus 8.6-50 mg Softgel] 1 each PO DAILY #20 capsule 06/17/25 [Rx] Follow up Appointment(s)/Referral(s): Geo Morales PAC [PHYSICIAN ASSOCIATE COUNSEL] - 2 Weeks Patient Instructions/Handouts: Knee Replacement (GEN) Activity/Diet/Wound Care/Special Instructions: Orthopedic Discharge Instructions: 1. Wound care and infection precautions, keep incision dry and covered while showering, no lotions, creams, moisturizers. No soaking, pools, hot tubs. Do not scrub over incision. 2. Weight-bear as tolerated with walker / cane until follow-up. 3. Ice and elevate when necessary. Do not exceed 20 minutes per hour with ice pack. 4. Utilize compression sleeve until seen at first follow up appointment. 5. Pain meds and anticoagulants per prescription. 6. Pain medication has potential to cause constipation. Increase oral fluid and fiber intake. Contact primary care provider if you have not had a bowel movement within 48 hours after discharge. 7. No anti-inflammatory medication until discussed at first post operative visit, this including Motrin, Aleve, Mobic, Diclofenac. 8. Follow up in office at 2 weeks postop with Jose Morales PA-C / Mason Harris PA-C 9. Follow up with your primary care doctor 7-10 days after discharge. 10. Contact [facility] with any questions, . Keep incision clean, dry, intact. While showering, cover silver foam dressing with Saran wrap. Keep silver foam dressing on until 06/23/2025. Once dressing is removed on 06/23/2025, it is okay to shower directly over the incision. Discharge Disposition: HOME WITH HOME HEALTH SERVICES
--- NOTE | 2025-06-17 10:49 | P.PN ---
Subjective Progress Note Date: 06/17/25 Principal diagnosis: Left knee osteoarthritis Patient was seen at bedside this morning sitting up in chair with Parth bandage present over left lower extremity. Silver foam dressing is present over left knee incision. Incision appears to be healing well. Negative for any active drainage. Patient says she does have a walker at home. She says she has been urinating since surgery without issue. She says she did get up with therapy this morning and walked out of the hallway and up, steps. She says she is looking forward to going home today. Says pain is controlled with oral medication. Denies any other issues at this time. Objective - Vital Signs Vital signs: Vital Signs Temp 97.9 F 06/17/25 07:05 Pulse 79 06/17/25 07:05 Resp 16 06/17/25 07:05 BP 104/67 06/17/25 07:05 Pulse Ox 96 06/17/25 07:05 FiO2 Intake & Output 06/16/25 06/17/25 06/17/25 18:59 06:59 18:59 Intake Total 1150 Output Total 40 Balance 1110 Weight 69.5 kg Intake: IV 1150 Output: Estimated Blood Loss 40 Other: # Voids 1 2 - Exam Left knee: Incision is clean, dry, and intact. The silver foam dressing is in good condition. There is minimal soft tissue swelling and ecchymosis surrounding the medial and lateral aspects of the incision. Calf is soft, no tenderness with palpation. Plantar flexion, dorsiflexion, EHL, FHL are intact. Sensory exam to light touch throughout the extremity is intact, dorsal pedis pulses 2+. - Labs CBC & Chem 7: 06/17/25 03:41 Labs: Abnormal Lab Results - Last 24 Hours (Table) 06/17/25 Range/Units 03:41 WBC 12.21 H (4.50-10.00) X 10*3/uL RBC 3.92 L (4.10-5.20) X 10*6/uL Plt Count 98 L (140-440) X 10*3/uL Immature Gran # 0.06 H (0.00-0.04) X 10*3/uL Neutrophils # 10.57 H (1.80-7.70) X 10*3/uL Eosinophils # 0 L (0.04-0.35) X 10*3/uL Assessment and Plan Assessment: 1. Left knee osteoarthritis -Postop day 1 status post left total knee arthroplasty Plan: 1. Left knee osteoarthritis -left total knee arthroplasty performed yesterday, 06/16/2025. Patient stable at bedside this morning. Patient did well with therapy this morning. Patient does have a walker for home. Discharge home tod ay with health services. 2. Appreciate medical management 3. Pain management - norco 4. Gi ppx - senna 5. DVT ppx - aspirin 6. PT/OT - WBAT w/walker 7. encourage incentive spirometer use 8. Discharge planning -Home today with health services Time with Patient: Less than 30
--- NOTE | 2025-06-17 11:38 | P.CONS ---
History of Present Illness - Reason for Consult Consult date: 06/17/25 Medical management Requesting physician: Vick Sosa - Chief Complaint Symptomatic left knee osteoarthritis - History of Present Illness This is a pleasant 69-year-old female with past medical history significant for osteoarthritis, hypothyroidism, hyperlipidemia and multiple medical issues presented with symptomatic left knee osteoarthritis, failed conservative tr eatment, status post left total knee arthroplasty. Tolerated procedure well. Pain controlled on current regimen. up in chair. Participated with PT, tolerated exertion well. Denies lightheadedness, dizziness or focal deficits. Denies chest pain, palpitations or shortness of breath. Denies nausea vomiting or diarrhea. Passing flatus. Hemoglobin 12.5, preop hemoglobin 14.1, platelets 98, preop 172. Review of Systems Constitutional: Denied any fatigue denied any fever. Cardio vascular: denied any chest pain, palpitations Gastrointestinal denied any nausea vomiting Pulmonary: Denied any shortness of breath cough Neurologic denied any new focal deficits All inpatient medications were reviewed and appropriate changes in these medications as dictated in the interval history and assessment and plan. Past Medical History Past Medical History: Hyperlipidemia, Osteoarthritis (OA), Thyroid Disorder History of Any Multi-Drug Resistant Organisms: None Reported Past Surgical History: Hysterectomy, Orthopedic Surgery Additional Past Surgical History / Comment(s): ovarian cyst removed, lilia bunionectomy, colonoscopy, lilia cataracts removed Past Anesthesia/Blood Transfusion Reactions: No Reported Reaction Additional Past Anesthesia/Blood Transfusion Reaction / Comm: can be slow to come out of anesthesia Smoking Status: Never smoker - Past Family History Mother Family Medical History: No Reported History Medications and Allergies Home Medications Medication Instructions Recorded Confirmed Type Acetaminophen Tab [Tylenol] 325 mg PO Q4H PRN 06/11/25 06/16/25 History Atorvastatin [Lipitor] 10 mg PO HS 06/11/25 06/16/25 History Calcium,Magnesium 1 tab PO DAILY 06/11/25 06/16/25 History Cholecalciferol [Vitamin D3 (25 25 mcg PO DAILY 06/11/25 06/16/25 History Mcg = 1000 Iu)] Melatonin 5 mg PO HS 06/11/25 06/16/25 History Soy Isofla/Blk Cohosh/Mag Bark 155 mg PO HS 06/11/25 06/16/25 History [Estroven 155 mg Capsule] Thyroid,Pork [Sheet Taker Thyroid] 60 mg PO HS 06/11/25 06/16/25 History Aspirin [Adult Low Dose Aspirin EC] 81 mg PO BID #60 tab 06/17/25 Rx HYDROcodone/APAP 5-325MG [Isabella 1 - 2 tab PO Q6HR PRN #36 tab 06/17/25 Rx 5-325] Sennosides/Docusate Sodium [Senna 1 each PO DAILY #20 capsule 06/17/25 Rx Plus 8.6-50 mg Softgel] Allergies Allergy/AdvReac Type Severity Reaction Status Date / Time Penicillins Allergy Rash/Hives Verified 06/16/25 09:37 Physical Exam Vitals: Vital Signs Temp Pulse Resp BP Pulse Ox 06/17/25 07:05 97.9 F 79 16 104/67 96 06/17/25 01:05 98.1 F 76 16 102/62 96 06/16/25 20:00 76 16 06/16/25 19:46 98.4 F 72 16 111/68 93 L 06/16/25 17:15 97.8 F 80 15 132/77 96 06/16/25 16:15 72 16 135/79 97 06/16/25 15:45 86 22 131/70 97 06/16/25 15:15 66 15 128/76 98 06/16/25 14:45 64 16 122/81 97 06/16/25 14:30 59 L 12 125/65 95 06/16/25 14:15 48 L 14 128/68 98 06/16/25 14:00 57 L 14 122/73 98 06/16/25 13:45 54 L 12 129/71 100 06/16/25 13:30 60 16 135/76 97 06/16/25 13:15 68 16 137/70 99 06/16/25 13:00 64 16 137/75 100 06/16/25 12:45 97 F L 57 L 16 136/71 100 Intake and Output 06/16/25 06/17/25 06/17/25 22:59 06:59 14:59 Other: # Voids 1 2 Weight 69.5 kg PHYSICAL EXAM: VITAL SIGNS: [Reviewed] GENERAL: Pleasant 69-year-old female, alert and oriented x 3, sitting up in chair, no acute distress HEENT: Normocephalic, atraumatic, conjunctivae normal. eyes normal.MMM. NECK: Supple, no JVD. CARDIOVASCULAR: S1, S2, regular. No murmur RESPIRATION: Unlabored, equal air entry, clear to auscultation. ABDOMEN: Soft, nondistended, nontender . No guarding. no masses palpable. No ascites, No hepatosplenomegaly.Bowel sounds heard. LEGS: Left lower extremity dressing clean dry and intact, ice pack present, minimal edema, no calf tenderness, peripheral pulses intact. NERVOUS SYSTEM: Cranial N 2-12 grossly normal. No focal deficits. Strength and sensation grossly intact. Skin: Warm and dry, no rash Results CBC & Chem 7: 06/17/25 03:41 Labs: Abnormal Lab Results - Last 24 Hours (Table) 06/17/25 Range/Units 03:41 WBC 12.21 H (4.50-10.00) X 10*3/uL RBC 3.92 L (4.10-5.20) X 10*6/uL Plt Count 98 L (140-440) X 10*3/uL Immature Gran # 0.06 H (0.00-0.04) X 10*3/uL Neutrophils # 10.57 H (1.80-7.70) X 10*3/uL Eosinophils # 0 L (0.04-0.35) X 10*3/uL Assessment and Plan Assessment: Symptomatic left knee osteoarthritis, status post left total knee arthroplasty Osteoarthritis Hypothyroidism Hyperlipidemia Plan: Continue on current medication regimen ,monitoring and symptomatic treatment. Aggressive pulmonary toileting with incentive spirometer reinforced. DVT prophylaxis and pain management as per general surgery. PT. Discharge planning in progress. Follow-up with PCP in 1 to 2 weeks. Thank you for the consult. The impression and plan of care has been dictated as directed. : I performed a history and examination of this patient, discussed the same with the dictator. I agree with the dictator's note ,documented as a scribe. Any additional findings or plans will be noted.
[2025-06-17] MEDS: MULTIVITAMINS, THERA 1 EACH TAB PO SCH (12:44)
== END 2025-06-17 12:56 | disposition home health service (06) ==
LOC: OR 09:15 → 4SSUR 12:39 → OR 06-17 12:56
PROVIDERS: ATTEND Orthopaedic Surgery
DX: M17.12 Unilateral primary osteoarthritis, left knee (principal); M54.50 Low back pain, unspecified; E78.5 Hyperlipidemia, unspecified; E03.9 Hypothyroidism, unspecified; Z90.710 Acquired absence of both cervix and uterus; Z88.0 Allergy status to penicillin; Z79.82 Long term (current) use of aspirin; Z79.890 Hormone replacement therapy; Z79.899 Other long term (current) drug therapy
CPT/HCPCS: 27447; 97161; 64448; 64473; 85025; 73560; C1776; C1713 ×2; C1751; J2250; J1100; J0690 ×2; J2405; J3010; J2795; J2704